=== PATIENT | male | born 1990 | race Caucasian/White ===

== ENCOUNTER 2022-03-11 21:07 | Inpatient (IN) ==
[2022-03-11 22:12] LABS: Basophils % 0.5 %; Eosinophils % 0.1 %; Hematocrit 50.4 % (37.5-50.1); Hemoglobin 18.3 g/dL (12.9-16.9); Immature Granulocytes % 0.1 % (0-4); Lymphocytes # 2.9 K/mcL (0.6-4.6); Lymphocytes % 33.2 %; Mean Corpuscular HGB Conc 36.3 g/dL (31.6-35.5); Mean Corpuscular Hemoglobin 32.9 pg (28.0-33.3); Mean Corpuscular Volume 90.5 fL (83.0-100.0); Mean Platelet Volume 9.2 fL (9.4-12.4); Monocytes % 11.9 %; Neutrophils # 4.7 K/mcL (1.6-8.9); Platelet Count 235 K/mcL (140-400); Red Blood Count 5.57 M/mcL (4.19-5.50); Red Cell Distribution Width 11.3 % (11.5-14.5); Segmented Neutrophils % 54.2 %; White Blood Count 8.7 K/mcL (4.3-11.1)
[2022-03-11 22:18] LABS: Bacteria,Urine Few per hpf (None-Few); Bilirubin,Urine Negative (Negative); Blood,Urine Trace (Negative); Clarity,Urine Clear (Clear); Color,Urine Light-Yellow (Yellow); Glucose,Urine (UA) Normal (Normal); Ketones,Urine Negative (Negative); Leukocyte Esterase,Urine Trace (Negative); Mucus,Urine Few per lpf (None-Few); Nitrite,Urine Negative (Negative); Protein,Urine Trace mg/dL (Neg-Trace); RBC,Urine 0-3 per hpf (0-3); Specific Gravity,Urine 1.012 (1.010-1.025)
[2022-03-11 22:32] LABS: Acetaminophen < 10 mcg/mL (10-20); BUN/Creatinine Ratio 14 (6-26); Blood Urea Nitrogen 13 mg/dL (6-20); Calcium 9.7 mg/dL (8.6-10.3); Carbon Dioxide 28 mEq/L (23-29); Chloride 96 mEq/L (98-107); Ethanol 250 mg/dL (Less than 10); Glucose 116 mg/dL (70-105); Osmolality,Calculated 287 (280-300); Potassium 3.4 mEq/L (3.5-5.1); Salicylate < 2.5 mg/dL (15.0-30.0); Sodium 138 mEq/L (136-145)
[2022-03-11] MEDS ORDERED: *HR* LORazepam 2 MG/ML VIAL IVP PRN (22:50)
[2022-03-11] MEDS ORDERED: *HR* LORazepam 1 MG TABLET PO PRN ×3 (22:50)
[2022-03-11] MEDS ORDERED: Ondansetron 4 MG/2 ML VIAL IVP ONE (22:52)
[2022-03-11 22:54] LABS: Amphetamine Screen,Urine Negative ng/mL (Cutoff=1000); Barbiturate Screen,Urine Negative ng/mL (Cutoff=200); Benzodiazepines Screen,Urine Negative ng/mL (Cutoff=200); Cannabinoid Screen,Urine Positive ng/mL (Cutoff = 50); Cocaine Screen,Urine Negative ng/mL (Cutoff= 300); Opiate Screen,Urine Negative ng/mL (Cutoff=300); Phencyclidine Screen,Urine Negative ng/mL (Cutoff=25)
[2022-03-11 23:33] LABS: Alanine Aminotransferase 60 Units/L (7-52); Albumin 4.8 g/dL (3.5-5.7); Albumin/Globulin Ratio 1.4 (1.1-2.2); Alkaline Phosphatase 90 Units/L (34-104); Aspartate Amino Transferase 68 Units/L (13-39); Bilirubin,Direct 0.2 mg/dL (0.0-0.2); Bilirubin,Indirect 0.8 mg/dL (0.0-1.0); Globulin 3.4 g/dL (2.4-3.5); Total Protein 8.2 g/dL (6.4-8.9)
[2022-03-12] MEDS ORDERED: Prochlorperazine 10 MG/2 ML VIAL IVP PRN (00:55)
[2022-03-12] MEDS: *HR* LORazepam 2 MG/ML VIAL IVP PRN ×2 (01:05→09:48)
[2022-03-12] MEDS ORDERED: Naloxone 0.4 MG/ML INJ IVP PRN (02:11)
[2022-03-12 03:15] LABS: Albumin 4.4 g/dL (3.5-5.7); Albumin/Globulin Ratio 1.5 (1.1-2.2); Bilirubin,Direct 0.2 mg/dL (0.0-0.2); Bilirubin,Indirect 0.9 mg/dL (0.0-1.0); Bilirubin,Total 1.1 mg/dL (0.3-1.0); Globulin 2.9 g/dL (2.4-3.5); Total Protein 7.3 g/dL (6.4-8.9)
[2022-03-12 04:23] LABS: Adenovirus Not Detected (Not Detect); Bordetella Pertussis Not Detected (Not Detect); Chlamydophila pneumoniae Not Detected (Not Detect); Coronavirus 229E Not Detected (Not Detect); Coronavirus HKU1 Not Detected (Not Detect); Coronavirus NL63 Not Detected (Not Detect); Coronavirus OC43 Not Detected (Not Detect); Human Metapneumovirus Not Detected (Not Detect); Human Rhinovirus/Enterovirus Not Detected (Not Detect); Influenza A Subtype 2009 H1 Not Detected (Not Detect); Influenza B Not Detected (Not Detect); Mycoplasma pneumoniae Not Detected (Not Detect); Parainfluenza Virus 1 Not Detected (Not Detect); Parainfluenza Virus 2 Not Detected (Not Detect); Parainfluenza Virus 3 Not Detected (Not Detect); Parainfluenza Virus 4 Not Detected (Not Detect); Respiratory Syncytial Virus Not Detected (Not Detect); SARS-CoV-2 Not Detected (Not Detect)
[2022-03-12 05:57] LABS: Hematocrit 47.4 % (37.5-50.1); Hemoglobin 17.2 g/dL (12.9-16.9); Mean Corpuscular HGB Conc 36.3 g/dL (31.6-35.5); Mean Corpuscular Hemoglobin 32.9 pg (28.0-33.3); Mean Corpuscular Volume 90.6 fL (83.0-100.0); Mean Platelet Volume 9.4 fL (9.4-12.4); Platelet Count 190 K/mcL (140-400); Red Blood Count 5.23 M/mcL (4.19-5.50); Red Cell Distribution Width 11.3 % (11.5-14.5); White Blood Count 9.8 K/mcL (4.3-11.1)
[2022-03-12 06:20] LABS: BUN/Creatinine Ratio 16 (6-26); Blood Urea Nitrogen 14 mg/dL (6-20); Calcium 9.7 mg/dL (8.6-10.3); Carbon Dioxide 29 mEq/L (23-29); Chloride 96 mEq/L (98-107); Glucose 105 mg/dL (70-105); Magnesium 1.4 mg/dL (1.6-2.6); Osmolality,Calculated 283 (280-300); Potassium 3.4 mEq/L (3.5-5.1); Sodium 136 mEq/L (136-145)
[2022-03-12] MEDS: Folic Acid 1 MG TABLET PO SCH (14:47)
[2022-03-12] MEDS ORDERED: *HR* Labetalol 20 MG/4 ML SYRINGE IVP ONE ×2 (14:54→14:55)
[2022-03-12] MEDS: Thiamine (B-1) 100 MG in 0.9 % Sodium Chloride 50 ML IVPB SCH (17:15)
[2022-03-12] MEDS: Melatonin 3 MG TABLET PO PRN (20:27)
[2022-03-12] MEDS: Nicotine 21 MG PATCH.TD24 TD SCH (20:28)
[2022-03-13] MEDS: *HR* LORazepam 2 MG/ML VIAL IVP PRN ×4 (04:52→22:15)
[2022-03-13] MEDS: Acetaminophen 325 MG TABLET PO PRN (05:14)
[2022-03-13] MEDS: lisinopriL 10 MG TABLET PO SCH (08:41)
[2022-03-13] MEDS: Nicotine 21 MG PATCH.TD24 TD SCH (08:42)
[2022-03-13] MEDS: Folic Acid 1 MG TABLET PO SCH (08:42)
[2022-03-13] MEDS: Thiamine (B-1) 100 MG in 0.9 % Sodium Chloride 50 ML IVPB SCH (08:43)
[2022-03-13] MEDS: Ondansetron 4 MG/2 ML VIAL IVP PRN ×2 (11:57→22:07)
[2022-03-13] MEDS: *HR* Enoxaparin 40 MG/0.4 ML SYRINGE SQ SCH (14:58)
[2022-03-13] MEDS: Melatonin 3 MG TABLET PO PRN (20:28)
[2022-03-14 03:21] LABS: Basophils % 0.2 %; Eosinophils # 0.1 K/mcL (0.0-0.6); Hematocrit 43.9 % (37.5-50.1); Immature Granulocytes % 0.2 % (0-4); Mean Corpuscular HGB Conc 35.1 g/dL (31.6-35.5); Mean Corpuscular Hemoglobin 32.8 pg (28.0-33.3); Mean Corpuscular Volume 93.4 fL (83.0-100.0); Mean Platelet Volume 10.3 fL (9.4-12.4); Monocytes # 0.7 K/mcL (0.0-1.3); Monocytes % 8.8 %; Neutrophils # 5.2 K/mcL (1.6-8.9); Platelet Count 156 K/mcL (140-400); Red Cell Distribution Width 11.3 % (11.5-14.5); Segmented Neutrophils % 64.8 %; White Blood Count 8.1 K/mcL (4.3-11.1)
[2022-03-14 03:33] LABS: Hemoglobin 15.4 g/dL (12.9-16.9)
[2022-03-14 03:37] LABS: BUN/Creatinine Ratio 19 (6-26); Blood Urea Nitrogen 18 mg/dL (6-20); Calcium 9.3 mg/dL (8.6-10.3); Carbon Dioxide 29 mEq/L (23-29); Chloride 101 mEq/L (98-107); Glucose 106 mg/dL (70-105); Osmolality,Calculated 286 (280-300); Phosphorous 4.2 mg/dL (2.7-4.5); Potassium 3.5 mEq/L (3.5-5.1); Sodium 137 mEq/L (136-145)
[2022-03-14] MEDS: *HR* LORazepam 2 MG/ML VIAL IVP PRN ×3 (05:23→21:24)
[2022-03-14] MEDS: Acetaminophen 325 MG TABLET PO PRN (05:28)
[2022-03-14] MEDS ORDERED: 0.9 % Sodium Chloride 1,000 ML IVC SCH (09:30)
[2022-03-14] MEDS: Folic Acid 1 MG TABLET PO SCH (09:54)
[2022-03-14] MEDS: lisinopriL 10 MG TABLET PO SCH (09:54)
[2022-03-14] MEDS: *HR* Enoxaparin 40 MG/0.4 ML SYRINGE SQ SCH (09:55)
[2022-03-14] MEDS: Nicotine 21 MG PATCH.TD24 TD SCH (09:55)
[2022-03-14] MEDS: Thiamine (B-1) 100 MG in 0.9 % Sodium Chloride 50 ML IVPB SCH (09:57)
[2022-03-14] MEDS: Ondansetron 4 MG/2 ML VIAL IVP PRN (09:57)
[2022-03-14] MEDS: Melatonin 3 MG TABLET PO PRN (21:24)
[2022-03-15] MEDS: *HR* LORazepam 2 MG/ML VIAL IVP PRN ×4 (01:34→21:05)
[2022-03-15] MEDS: Folic Acid 1 MG TABLET PO SCH (08:37)
[2022-03-15] MEDS: Nicotine 21 MG PATCH.TD24 TD SCH (08:37)
[2022-03-15] MEDS: lisinopriL 10 MG TABLET PO SCH (08:38)
[2022-03-15] MEDS: *HR* Enoxaparin 40 MG/0.4 ML SYRINGE SQ SCH (08:38)
[2022-03-15] MEDS: Thiamine (B-1) 100 MG in 0.9 % Sodium Chloride 50 ML IVPB SCH (11:13)
[2022-03-15] MEDS: Acetaminophen 325 MG TABLET PO PRN ×2 (11:15→21:09)
[2022-03-15] MEDS: Melatonin 3 MG TABLET PO PRN (21:06)
[2022-03-16] MEDS: Acetaminophen 325 MG TABLET PO PRN ×3 (03:06→23:49)
[2022-03-16] MEDS: *HR* LORazepam 2 MG/ML VIAL IVP PRN ×4 (03:07→23:51)
[2022-03-16] MEDS: Nicotine 21 MG PATCH.TD24 TD SCH (09:39)
[2022-03-16] MEDS: Folic Acid 1 MG TABLET PO SCH (09:39)
[2022-03-16] MEDS: Thiamine (B-1) 100 MG TABLET PO SCH (09:39)
[2022-03-16] MEDS: lisinopriL 10 MG TABLET PO SCH (09:39)
[2022-03-16] MEDS: *HR* Enoxaparin 40 MG/0.4 ML SYRINGE SQ SCH (09:41)
[2022-03-16] MEDS: Ondansetron 4 MG/2 ML VIAL IVP PRN (15:09)
[2022-03-16] MEDS: Melatonin 3 MG TABLET PO PRN (23:50)
[2022-03-17] MEDS ORDERED: Ibuprofen 600 MG TABLET PO ONE (06:04)
[2022-03-17] MEDS: Nicotine 21 MG PATCH.TD24 TD SCH (07:42)
[2022-03-17] MEDS: Folic Acid 1 MG TABLET PO SCH (07:42)
[2022-03-17] MEDS: Thiamine (B-1) 100 MG TABLET PO SCH (07:43)
[2022-03-17] MEDS: lisinopriL 10 MG TABLET PO SCH (07:43)
[2022-03-17] MEDS: *HR* Enoxaparin 40 MG/0.4 ML SYRINGE SQ SCH (07:43)
[2022-03-17] MEDS: *HR* LORazepam 2 MG/ML VIAL IVP PRN ×3 (07:53→21:03)
[2022-03-17] MEDS: Acetaminophen 325 MG TABLET PO PRN (21:03)
[2022-03-17] MEDS: Melatonin 3 MG TABLET PO PRN (23:00)
[2022-03-18] MEDS: Acetaminophen 325 MG TABLET PO PRN ×2 (03:45→22:34)
[2022-03-18] MEDS: *HR* LORazepam 2 MG/ML VIAL IVP PRN (03:49)
[2022-03-18] MEDS: *HR* Enoxaparin 40 MG/0.4 ML SYRINGE SQ SCH (09:25)
[2022-03-18] MEDS: Thiamine (B-1) 100 MG TABLET PO SCH (09:25)
[2022-03-18] MEDS: Folic Acid 1 MG TABLET PO SCH (09:26)
[2022-03-18] MEDS: lisinopriL 10 MG TABLET PO SCH (09:28)
[2022-03-18] MEDS: Nicotine 21 MG PATCH.TD24 TD SCH ×2 (10:25→13:21)
[2022-03-18] MEDS ORDERED: *HR* LORazepam 1 MG TABLET PO PRN ×2 (10:45)
[2022-03-18] MEDS: *HR* LORazepam 1 MG TABLET PO PRN ×2 (16:08→22:34)
[2022-03-18] MEDS: Melatonin 3 MG TABLET PO PRN (22:34)
[2022-03-19 06:56] VITALS: BP 121/72; PULSE 69; TEMP 97.6; O2SAT 98
[2022-03-19] MEDS: Thiamine (B-1) 100 MG TABLET PO SCH (08:38)
[2022-03-19] MEDS: Folic Acid 1 MG TABLET PO SCH (08:38)
[2022-03-19] MEDS: *HR* Enoxaparin 40 MG/0.4 ML SYRINGE SQ SCH (08:40)
[2022-03-19] MEDS: Nicotine 21 MG PATCH.TD24 TD SCH (08:45)
== END 2022-03-19 10:53 | disposition home or self-care (01) | DRG 774 ==
LOC: EMEROOARM 21:07 → 3BNU 21:07 → SUATTDRO 03-12 02:28 → 3BNU 03-12 03:20 → SUATTDRO 03-13 11:48
PROVIDERS: ADMIT Internal Medicine; ATTEND Internal Medicine